=== PATIENT | male | born 1980 | race Caucasian/White ===

== ENCOUNTER → 2018-08-04 | Day surgery (SDC) | payer BC ==
[~2018-08-04] MED LIST: Lactated Ringers 1,000 ML IV SCH; Propofol 200 MG/20 ML SDV IV ONE
[2018-08-04 13:24] VITALS: BP 110/75
--- NOTE | 2018-08-04 14:51 | OR ---
DATE OF OPERATION: 08/04/2018 PREOPERATIVE DIAGNOSIS: FAMILY HISTORY OF COLON CANCER. POSTOPERATIVE DIAGNOSIS: FAMILY HISTORY OF COLON CANCER. SURGEON: Sage Roldan MD PROCEDURE: FULL-LENGTH COLONOSCOPY. ANESTHESIA: [employer] due to chronic GERD. COMPLICATIONS: None. SPECIMEN: None. FINDINGS: Normal full-length colonoscopy. RECOMMENDATIONS: Followup colonoscopy every 5 years. INDICATIONS: The patient has recent knowledge of colon cancer in his father. We elected to proceed with colonoscopy. DESCRIPTION OF PROCEDURE: The patient was prepped and draped, placed in the left lateral decubitus position. A lubricated Olympus colonoscope was inserted and easily and safely advanced to the cecum. We were able to directly visualize the ileocecal valve and appendiceal orifice. The bowel prep was adequate. Upon withdrawal of the scope, throughout the entire length of the colon, I could find no signs of any polyps, masses, ulceration, or bleeding sites. No vascular abnormalities or signs of colitis. No significant signs of diverticula. The rectal vault was benign. Retroflexion of scope in the rectum showed no perianal lesions. Air was then suctioned, scope removed without complication. MAXIMILIANO/ALINA /[id number]
== END ==
LOC: CC.SDS 11:01
PROVIDERS: ATTEND Family Medicine
DX: Z12.11 Encounter for screening for malignant neoplasm of colon (principal); J45.909 Unspecified asthma, uncomplicated; Z80.0 Family history of malignant neoplasm of digestive organs
CPT/HCPCS: 45378; J2704; J7120

== ENCOUNTER → 2020-10-03 | Day surgery (SDC) | payer BC ==
[~2020-10-03] MED LIST changes: +Lidocaine 1% with EPINEPHrine 1:100,000 20 ML MDV ONE; +Lidocaine 2% 5 ML SDV ONE; +Midazolam 1 MG/ML 2 ML SDV ONE; -Propofol 200 MG/20 ML SDV IV ONE; +Propofol 200 MG/20 ML SDV ONE; +fentaNYL 100 MCG/2 ML SDV ONE
[2020-10-03 15:09] VITALS: BP 116/81; PULSE 60
--- NOTE | 2020-10-06 07:16 | OR ---
DATE OF OPERATION: 10/03/2020 PREOPERATIVE DIAGNOSIS: DYSPHAGIA. POSTOPERATIVE DIAGNOSIS: DYSPHAGIA. SURGEON: Sage Roldan MD PROCEDURE: DIAGNOSTIC ESOPHAGOGASTRODUODENOSCOPY WITH BALLOON DILATATION OF ESOPHAGOGASTRIC JUNCTION. ANESTHESIA: MAC. COMPLICATIONS: None. SPECIMEN: 1. Antral biopsy x1. 2. Antral WENDY. FINDINGS: 1. Full-length diagnostic EGD. 2. Minimal distal antral gastritis, chronic. 3. Mild strictured EG junction with successful balloon dilatation to 18 mm. RECOMMENDATIONS: The patient is going to be started on ongoing proton pump therapy with H2 farrukh at night. INDICATIONS: The patient has known chronic GERD and has been having increasing dysphagia as of late. 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 It has been almost 4 years since his last, and we elected to proceed with procedure. DESCRIPTION OF PROCEDURE: The patient was prepped and draped, placed in the left lateral decubitus position. A lubricated Olympus gastroscope was inserted and intubated in the esophagus without difficulty. The esophageal lining appeared benign in its entire course. There was no distal esophagitis, ulceration, or Alexis's changes. The Z-line was present around 43 cm. There was a mild stricturing of the EG junction. The scope was passed through this into the stomach, through the pylorus, and into the second portion of the duodenum. This and the duodenal bulb were benign. The scope was brought back into the stomach and retroflexed. The upper fundus and cardia appeared unremarkable. Upon straightening, the rest of the fundus and most of the antrum appeared benign around the pyloric area. In the distal antrum, the patient had a little bit of chronic appearing gastritis. Did do biopsy of that and a WENDY. The scope was then brought back into the distal esophagus and a balloon dilator was inserted in usual fashion. EG junction was dilated to 16, 17, and 18 mm in usual fashion with balloon dilation without complication. The patient tolerated the procedure well. The scope was removed without complication. The patient was stable in recovery room. MAXIMILIANO/ALINA /[id number]
--- NOTE | 2020-10-06 07:17 | OR ---
DATE OF OPERATION: 10/03/2020 Sixto has a small lipoma on his abdomen measuring approximately 2 cm just superior and lateral to the umbilicus. We prepped it in usual fashion with Betadine. 1% lidocaine with epi was used for local anesthesia. A 2 cm incision was made with a 15 blade scalpel. Tissue was dissected down to the lipoma. It was removed easily without complication. Three interrupted 4-0 nylon sutures were placed to close the wound and dressing was applied appropriately. Specimen was sent to pathology. There were no complications. MAXIMILIANO/ALINA /[id number]
== END ==
LOC: CC.SDS 12:56
PROVIDERS: ATTEND Family Medicine
DX: K29.50 Unspecified chronic gastritis without bleeding (principal); K22.2 Esophageal obstruction; K21.9 Gastro-esophageal reflux disease without esophagitis; K31.89 Other diseases of stomach and duodenum; D17.1 Benign lipomatous neoplasm of skin and subcutaneous tissue of trunk; E66.9 Obesity, unspecified; Z79.899 Other long term (current) drug therapy; Z68.36 Body mass index [BMI] 36.0-36.9, adult; Z98.890 Other specified postprocedural states
CPT/HCPCS: 00731; 87081; J2250; J2704; J3010; J7120

== ENCOUNTER → 2023-04-15 | Day surgery (SDC) | payer BC ==
[~2023-04-15] MED LIST changes: -Lidocaine 1% with EPINEPHrine 1:100,000 20 ML MDV ONE; -Lidocaine 2% 5 ML SDV ONE; -Midazolam 1 MG/ML 2 ML SDV ONE; -Propofol 200 MG/20 ML SDV ONE; -fentaNYL 100 MCG/2 ML SDV ONE
[2023-04-15 12:26] VITALS: BP 114/85; PULSE 59
== END ==
LOC: CC.SDS 09:16
PROVIDERS: ATTEND Family Medicine
DX: K21.9 Gastro-esophageal reflux disease without esophagitis (principal); K22.2 Esophageal obstruction; G47.33 Obstructive sleep apnea (adult) (pediatric); Z79.899 Other long term (current) drug therapy
CPT/HCPCS: 87081; J7120